=== PATIENT | female | born 1990 | race Caucasian/White ===

== ENCOUNTER 2019-03-13 00:48 | Inpatient (IN) | payer SELFPAY ==
[~2019-03-13] VITALS: Ht 162.6 cm; Wt 131.7 kg
[2019-03-13 01:00] VITALS: BP 153/92
[2019-03-13 03:00] VITALS: BP 157/96
[2019-03-13 04:23] LABS: BASO # 0.1 x10^3/uL (0.0-0.2); BASO % 1 % (0-3); EOS # 0.4 x10^3/uL (0.0-0.7); EOS % 4 % (0-3); HEMATOCRIT 38.6 % (36.0-47.0); HEMOGLOBIN 12.9 g/dL (12.0-15.5); LYMPH # 3.1 x10^3/uL (1.0-4.8); LYMPH % 30 % (24-48); MEAN CORPUSCULAR HEMOGLOBIN 31 pg (25-35); MEAN CORPUSCULAR HGB CONC 34 g/dL (31-37); MEAN CORPUSCULAR VOLUME 91 fL (79-100); MONO # 0.8 x10^3/uL (0.0-1.1); MONO % 8 % (0-9); NEUT # 5.8 x10^3/uL (1.8-7.7); NEUT % 57 % (31-73); PLATELET COUNT 212 x10^3/uL (140-400); RED BLOOD COUNT 4.23 x10^6/uL (3.50-5.40); RED CELL DISTRIBUTION WIDTH 13.2 % (11.5-14.5); WHITE BLOOD COUNT 10.2 x10^3/uL (4.0-11.0)
[2019-03-13 04:38] LABS: ALBUMIN 2.7 g/dL (3.4-5.0); ALBUMIN/GLOBULIN RATIO 0.7 (1.0-1.7); CALCIUM 8.7 mg/dL (8.5-10.1); CREATININE 0.7 mg/dL (0.6-1.0); GFR 101.1; POTASSIUM 3.5 mmol/L (3.5-5.1); TOTAL BILIRUBIN 0.3 mg/dL (0.2-1.0); TOTAL PROTEIN 6.4 g/dL (6.4-8.2)
[2019-03-13 04:58] LABS: CHOLESTEROL/HDL RATIO 4.8
--- NOTE | 2019-03-13 06:58 | HP ---
ADMIT DATE: 03/13/2019 HISTORY OF PRESENT ILLNESS: The patient is a 28-year-old female patient who apparently had had delivered normal baby daughter about 5 days ago. The delivery was normal vaginal and was uneventful. Her delivery was induced. She was preeclamptic, was noted to be hypertensive in the last 10 days of her and she started complaining of shortness of breath. Her ankles were swollen and she has chest pain. She has had her baby delivered at [facility]. She was induced 9 days early because of hypertension, did have protein in the urine, had received balloon dilatation of cervix ruptured membranes; however, she did not receive continued dose of Pitocin. She was in labor for approximately 36 hours. She advised that initially they were planning , but she finally progressed with her delivery. She has no prior cardiac history or DVT or pulmonary embolism. She was basically evaluated in the Emergency Room and her lab work showed that her troponin was high at 0.160. Her D-dimer was high also at 1.49 and has had a chest x-ray, which showed no evidence of confluent infiltrate, no pneumothorax, or pleural effusion. The heart is normal in size. Given that the chest pain and shortness of breath and elevated D-dimer, she underwent a CT angiography of the chest. It showed that no pulmonary emboli identified, mild cardiomegaly. She has a 4 mm right lower lobe nodule, most likely benign and ____ and requires no further followup. She was also found to have a small hiatal hernia and given elevated troponin, a decision was made to transfer her to [facility] to consult the cardiology team. PAST MEDICAL HISTORY: Unremarkable except that she has preeclampsia in the last 10 days of her . She is known to have bronchial asthma during childhood that she has grown up. PAST SURGICAL HISTORY: Unremarkable. ALLERGIES: She has no known drug allergies. MEDICATIONS: She was on 1 tablet once a day and stool softener. OBSTETRIC HISTORY: She is a 1, para 1. FAMILY HISTORY: She has 2 sisters, one older and one younger, both healthy. Both parents are alive and healthy. SOCIAL HISTORY: She is . She does not smoke, drinks alcohol or use recreational drugs. She works in the [employer]. PHYSICAL EXAMINATION: GENERAL: On arrival to the Emergency Room, she was somewhat pale, not jaundiced, cyanosis or thyromegaly. No jugular venous distention. Mild bilateral lower limb edema. VITAL SIGNS: Her heart rate on arrival was 107, blood pressure was 158/81, temperature was 98, respiratory rate was 26, and oxygen saturation was 100% on room air. HEAD, EYES, EARS, NOSE, AND THROAT: Normocephalic, atraumatic. NECK: Supple. HEART: Showed normal first and second heart sounds. No gallop, rub or murmur. CHEST: Clear to auscultation. No crepitation or rhonchi. ABDOMEN: Distended, soft, nontender. No guarding or rigidity. No organomegaly. All hernial orifice intact. Bowel sounds normal. NEUROLOGIC: She was awake, alert, responding appropriately. All her cranial nerves intact. EXTREMITIES: She moves extremities without difficulty. LABORATORY DATA: On arrival showed the white cell count 12,200, hemoglobin 13.4, hematocrit 41, MCV 93, and platelet count 217,000 with normal manual differential. Her prothrombin time was 9.3, INR was 0.9, aPTT was 24 and D-dimer was 1.49. Serum sodium 142, potassium 2.6, chloride 107, bicarbonate 22, anion gap of 13, BUN 15, creatinine 1, estimated GFR was 67 mL per minute. Her glucose was 96, calcium was 9, magnesium was 1.9. Total bilirubin, AST, ALT, alkaline phosphatase were normal. Her first set of troponin was 0.160 and the second one was 0.929. Her beta natriuretic peptide was 784. Total protein was 6.6, albumin was 2.6. Urinalysis showed the urine was yellow, hazy with a pH of 7, specific gravity of 1.015. There was a trace of protein. The urine was negative for glucose, ketones, large amount of blood, negative for nitrite, small amount of leukocyte esterase. There were 6-10 rbc's, 1-4 wbc's, and no bacteria. Her toxic screen was negative. Her EKG showed that she was in sinus tachycardia at 103 beats per minute. There are some QRS abnormalities in anterolateral region, but no finding of acute ST segment elevation myocardial infarction. The patient did have a chest x-ray, which was unremarkable and CT angio of the chest was negative for pulmonary emboli, mild cardiomegaly, small hiatal hernia. ASSESSMENT AND PLAN: The patient was transferred to [facility] to do more troponin and to consult the cardiology team. She probably has a cardiomyopathy. She apparently was given aspirin 324 mg once a day. She is also given a dose of Lovenox 120 mg subcutaneously once, furosemide 40 mg IV once. Also she received a liter of lactated Ringer. The patient was transferred to [facility] and her third troponin was 1.107. Her triglycerides were 103, total cholesterol of 222, LDL was 155, VLDL was 21, HDL was 46, and cholesterol to HDL cholesterol was 12.8. Her TSH was 3.7466. Plan is to obviously await the rollout manager evaluation. TANJA NOLAN MD DR: AMI/bennett JOB#: [id number] / [id number]
[2019-03-13 07:24] VITALS: BP 154/93
--- NOTE | 2019-03-13 10:33 | PDOC2 ---
CARDIAC CONSULT DATE OF CONSULT Date of Consult DATE: 03/13/19 TIME: 10:25 REASON FOR CONSULT Reason for Consult: Elevated troponin Cardiomyopathy REFERRING PHYSICIAN Referring Physician: Dr. Laws SOURCE Source: Chart review, Patient HISTORY OF PRESENT ILLNESS HISTORY OF PRESENT ILLNESS This is a 28 yo female, who delivered a healthy baby girl 03/07/19 at [facility], who presented to [facility] secondary to shortness of breath. Was noted with elevated troponin and [facility] for [facility] evaluation and treatment. Patient reports he was out in the heat yesterday. Stood up and felt dizzy. [place] as if her heart was beating fast and was a little short of breath, so she went to the ED for further evaluation and treatment. No associated diaphoresis, chest pain, or nausea/vomiting. Patient was induced 9 days early due to hypertension. Did not have protein in her urine, but they wanted to induced before she was pre-eclamptic. Had difficulty with dilation. Labor was approximately 36 hrs. Has a history of childhood asthma. Has felt slightly short of breath, wheezy since following delivery. Denies any chest pain. Reports shortness of breath has improved since admission. 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 Resides in [place]. 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 PAST MEDICAL HISTORY Cardiovascular: HTN Pulmonary: Asthma PAST SURGICAL HISTORY Past Surgical History: No pertinent history FAMILY HISTORY Family History: Heart Disease (chf), Hypertension SOCIAL HISTORY Smoke: No ALCOHOL: none Drugs: None Lives: with Family ALLERGIES ALLERGIES: Coded Allergies: No Known Drug Allergies (Unverified , 03/13/19) ROS Review of System 14 point ROS conducted with pertinent positives noted above in HPI. PHYSICAL EXAM General: Alert, Oriented X3, Cooperative, No acute distress HEENT: Atraumatic, Mucous membr. moist/pink Lungs: Clear to auscultation, Normal air movement Heart: Regular rate, Normal S1, Normal S2, No murmurs Abdomen: No tenderness Extremities: No edema, Normal pulses Skin: No breakdown, No significant lesion Neuro: Normal speech, Sensation intact Psych/Mental Status: Mental status NL, Mood NL MUSCULOSKELETAL: No deformity VITALS/I&O VITALS/I&O: Vital Signs Date Time Temp Pulse Resp B/P (MAP) Pulse Ox O2 Delivery O2 Flow Rate FiO2 03/13/19 08:00 Room Air 03/13/19 07:24 98.4 72 20 154/93 (113) 95 98.4 I & O 03/12/19 03/12/19 03/13/19 15:00 23:00 07:00 Intake Total 0 ml Output Total 200 ml Balance -200 ml LABS Lab: Laboratory Tests Test 03/13/19 03:40 White Blood Count 10.2 x10^3/uL (4.0-11.0) Red Blood Count 4.23 x10^6/uL (3.50-5.40) Hemoglobin 12.9 g/dL (12.0-15.5) Hematocrit 38.6 % (36.0-47.0) Mean Corpuscular Volume 91 fL (79-100) Mean Corpuscular Hemoglobin 31 pg (25-35) Mean Corpuscular Hemoglobin Concent 34 g/dL (31-37) Red Cell Distribution Width 13.2 % (11.5-14.5) Platelet Count 212 x10^3/uL (140-400) Neutrophils (%) (Auto) 57 % (31-73) Lymphocytes (%) (Auto) 30 % (24-48) Monocytes (%) (Auto) 8 % (0-9) Eosinophils (%) (Auto) 4 % (0-3) H Basophils (%) (Auto) 1 % (0-3) Neutrophils # (Auto) 5.8 x10^3/uL (1.8-7.7) Lymphocytes # (Auto) 3.1 x10^3/uL (1.0-4.8) Monocytes # (Auto) 0.8 x10^3/uL (0.0-1.1) Eosinophils # (Auto) 0.4 x10^3/uL (0.0-0.7) Basophils # (Auto) 0.1 x10^3/uL (0.0-0.2) Sodium Level 142 mmol/L (136-145) Potassium Level 3.5 mmol/L (3.5-5.1) Chloride Level 104 mmol/L (98-107) Carbon Dioxide Level 25 mmol/L (21-32) Anion Gap 13 (6-14) Blood Urea Nitrogen 13 mg/dL (7-20) Creatinine 0.7 mg/dL (0.6-1.0) Estimated GFR (Cockcroft-Gault) 101.1 BUN/Creatinine Ratio 19 (6-20) Glucose Level 83 mg/dL (70-99) Calcium Level 8.7 mg/dL (8.5-10.1) Total Bilirubin 0.3 mg/dL (0.2-1.0) Aspartate Amino Transferase (AST) 19 U/L (15-37) Alanine Aminotransferase (ALT) 21 U/L (14-59) Alkaline Phosphatase 96 U/L (46-116) Troponin I Quantitative 1.107 ng/mL (0.000-0.055) Total Protein 6.4 g/dL (6.4-8.2) Albumin 2.7 g/dL (3.4-5.0) L Albumin/Globulin Ratio 0.7 (1.0-1.7) L Triglycerides Level 103 mg/dL (0-150) Cholesterol Level 222 mg/dL (0-200) H LDL Cholesterol, Calculated 155 mg/dL (0-100) H VLDL Cholesterol, Calculated 21 mg/dL (0-40) Non-HDL Cholesterol Calculated 176 mg/dL (0-129) H HDL Cholesterol 46 mg/dL (40-60) Cholesterol/HDL Ratio 4.8 Thyroid Stimulating Hormone (TSH) 3.746 uIU/mL (0.358-3.74) H Laboratory Tests 03/13/19 03:40 Laboratory Tests 03/13/19 03:40 ASSESSMENT/PLAN ASSESSMENT/PLAN 1. Dyspnea; CXR without vascular congestion, CTA negative for PE. Resolved 2. NSTEMI; highest 1.1 3. Accelerated hypertension; mildly elevated 4. Post-, 6 days. Not 5. Hyperlipidemia Recommendations Add Norvasc for BP control Echo to assess LV systolic function Trend troponin Supportive care CARLOS SANTIAGO APRN Mar 13, 2019 10:33
[2019-03-13 11:06] VITALS: BP 162/109
[2019-03-13 14:53] VITALS: BP 153/97
--- NOTE | 2019-03-13 14:55 | CARD ---
MR#: [id number] Date of Study: 03/13/2019 Ordering Physician: JOSEFINA GUZMAN, Referring Physician: TANJA NOLAN, Tech: Cookie Moulton APPROVED REPORT EXAM: Two-dimensional and M-mode echocardiogram with Doppler and color Doppler. Other Information Quality : AverageHR: 65bpm Technically limited study due to body habitus. INDICATION Elevated Troponin 2D DIMENSIONS RVDd2.9 (2.9-3.5cm)Left Atrium(2D)3.7 (1.6-4.0cm) IVSd1.0 (0.7-1.1cm)Aortic Root(2D)2.6 (2.0-3.7cm) LVDd4.9 (3.9-5.9cm)LVOT Diameter2.0 (1.8-2.4cm) PWd0.8 (0.7-1.1cm)LVDs2.9 (2.5-4.0cm) FS (%) 41.0 %SV80.8 ml LVEF(%)71.6 (>50%) Aortic Valve AoV Peak Bowen.137.3cm/sAoV VTI30.4cm AO Peak GR.7.5mmHgLVOT VTI 20.35cm AO Mean GR.4mmHg Mitral Valve MV E Nkhplpnp179.6cm/sMV DECEL [id number] MV A Ipiiwtej99.7cm/sE/A Ratio1.3 TDI Lateral E' P. V10.68cm/sMedial E' P. V11.65cm/s E/Lateral E'9.8E/Medial E'9.0 Tricuspid Valve TR P. Xpkvceqr993co/sRAP NOUPOZMX9faTz TR Peak Gr.56czQvEANS09qnIa Pulmonary Vein S1 Cjcmtgwv10.0cm/sS2 Cjpuszvu00.91cm/s D2 Jrqfdkak34.9cm/sPVa toknasex689vmtj LEFT VENTRICLE The left ventricle is normal size. There is borderline concentric left ventricular hypertrophy. The l eft ventricular systolic function is normal. The ejection fraction is estimated at 60%. There is norm al LV segmental wall motion. The left ventricular diastolic function and filling is normal for age. RIGHT VENTRICLE The right ventricle is normal size. There is normal right ventricular wall thickness. The right ventr icular systolic function is normal. ATRIA The left atrium size is normal. The right atrium size is normal. The interatrial septum is intact wit h no evidence for an atrial septal defect or patent foramen ovale as noted on 2-D or Doppler imaging. AORTIC VALVE The aortic valve is normal in structure and function. Doppler and Color Flow revealed no significant aortic regurgitation. There is no significant aortic valvular stenosis. MITRAL VALVE The mitral valve is normal in structure and function. There is no evidence of mitral valve prolapse. There is no mitral valve stenosis. Doppler and Color Flow revealed no mitral valve regurgitation note d. TRICUSPID VALVE The tricuspid valve is normal in structure and function. Doppler and Color Flow revealed trace tricus pid regurgitation with an estimated PAP of 38 mmHg. There is no tricuspid valve prolapse or vegetatio n. There is no tricuspid valve stenosis. PULMONIC VALVE The pulmonary valve is normal in structure and function. Doppler and Color Flow revealed trace pulmon ic valvular regurgitation. GREAT VESSELS The aortic root is normal in size. The IVC is normal in size and collapses >50% with inspiration. PERICARDIAL EFFUSION There is no evidence of significant pericardial effusion. Critical Notification Critical Value: No <Conclusion> The left ventricular systolic function is normal. The ejection fraction is estimated at 60%. There is normal LV segmental wall motion. Trace tricuspid regurgitation with an estimated PAP of 38 mmHg. There is no evidence of significant pericardial effusion. Signed by : Josefina Guzman, Electronically Approved : 03/13/2019 14:54:42
--- NOTE | 2019-03-13 15:07 | PDOC ---
PULMONARY PROGRESS NOTES Vitals Vital Signs Date Time Temp Pulse Resp B/P (MAP) Pulse Ox O2 Delivery O2 Flow Rate FiO2 03/13/19 14:53 98.7 77 20 153/97 (115) 97 Room Air 98.7 Labs Laboratory Tests Test 03/13/19 03:40 03/13/19 10:50 White Blood Count 10.2 x10^3/uL (4.0-11.0) Red Blood Count 4.23 x10^6/uL (3.50-5.40) Hemoglobin 12.9 g/dL (12.0-15.5) Hematocrit 38.6 % (36.0-47.0) Mean Corpuscular Volume 91 fL (79-100) Mean Corpuscular Hemoglobin 31 pg (25-35) Mean Corpuscular Hemoglobin Concent 34 g/dL (31-37) Red Cell Distribution Width 13.2 % (11.5-14.5) Platelet Count 212 x10^3/uL (140-400) Neutrophils (%) (Auto) 57 % (31-73) Lymphocytes (%) (Auto) 30 % (24-48) Monocytes (%) (Auto) 8 % (0-9) Eosinophils (%) (Auto) 4 % (0-3) Basophils (%) (Auto) 1 % (0-3) Neutrophils # (Auto) 5.8 x10^3/uL (1.8-7.7) Lymphocytes # (Auto) 3.1 x10^3/uL (1.0-4.8) Monocytes # (Auto) 0.8 x10^3/uL (0.0-1.1) Eosinophils # (Auto) 0.4 x10^3/uL (0.0-0.7) Basophils # (Auto) 0.1 x10^3/uL (0.0-0.2) Sodium Level 142 mmol/L (136-145) Potassium Level 3.5 mmol/L (3.5-5.1) Chloride Level 104 mmol/L (98-107) Carbon Dioxide Level 25 mmol/L (21-32) Anion Gap 13 (6-14) Blood Urea Nitrogen 13 mg/dL (7-20) Creatinine 0.7 mg/dL (0.6-1.0) Estimated GFR (Cockcroft-Gault) 101.1 BUN/Creatinine Ratio 19 (6-20) Glucose Level 83 mg/dL (70-99) Calcium Level 8.7 mg/dL (8.5-10.1) Total Bilirubin 0.3 mg/dL (0.2-1.0) Aspartate Amino Transf (AST/SGOT) 19 U/L (15-37) Alanine Aminotransferase (ALT/SGPT) 21 U/L (14-59) Alkaline Phosphatase 96 U/L (46-116) Troponin I Quantitative 1.107 ng/mL (0.000-0.055) 0.614 ng/mL (0.000-0.055) Total Protein 6.4 g/dL (6.4-8.2) Albumin 2.7 g/dL (3.4-5.0) Albumin/Globulin Ratio 0.7 (1.0-1.7) Triglycerides Level 103 mg/dL (0-150) Cholesterol Level 222 mg/dL (0-200) LDL Cholesterol, Calculated 155 mg/dL (0-100) VLDL Cholesterol, Calculated 21 mg/dL (0-40) Non-HDL Cholesterol Calculated 176 mg/dL (0-129) HDL Cholesterol 46 mg/dL (40-60) Cholesterol/HDL Ratio 4.8 Thyroid Stimulating Hormone (TSH) 3.746 uIU/mL (0.358-3.74) Laboratory Tests Test 03/13/19 03:40 03/13/19 10:50 White Blood Count 10.2 x10^3/uL (4.0-11.0) Red Blood Count 4.23 x10^6/uL (3.50-5.40) Hemoglobin 12.9 g/dL (12.0-15.5) Hematocrit 38.6 % (36.0-47.0) Mean Corpuscular Volume 91 fL (79-100) Mean Corpuscular Hemoglobin 31 pg (25-35) Mean Corpuscular Hemoglobin Concent 34 g/dL (31-37) Red Cell Distribution Width 13.2 % (11.5-14.5) Platelet Count 212 x10^3/uL (140-400) Neutrophils (%) (Auto) 57 % (31-73) Lymphocytes (%) (Auto) 30 % (24-48) Monocytes (%) (Auto) 8 % (0-9) Eosinophils (%) (Auto) 4 % (0-3) Basophils (%) (Auto) 1 % (0-3) Neutrophils # (Auto) 5.8 x10^3/uL (1.8-7.7) Lymphocytes # (Auto) 3.1 x10^3/uL (1.0-4.8) Monocytes # (Auto) 0.8 x10^3/uL (0.0-1.1) Eosinophils # (Auto) 0.4 x10^3/uL (0.0-0.7) Basophils # (Auto) 0.1 x10^3/uL (0.0-0.2) Sodium Level 142 mmol/L (136-145) Potassium Level 3.5 mmol/L (3.5-5.1) Chloride Level 104 mmol/L (98-107) Carbon Dioxide Level 25 mmol/L (21-32) Anion Gap 13 (6-14) Blood Urea Nitrogen 13 mg/dL (7-20) Creatinine 0.7 mg/dL (0.6-1.0) Estimated GFR (Cockcroft-Gault) 101.1 BUN/Creatinine Ratio 19 (6-20) Glucose Level 83 mg/dL (70-99) Calcium Level 8.7 mg/dL (8.5-10.1) Total Bilirubin 0.3 mg/dL (0.2-1.0) Aspartate Amino Transf (AST/SGOT) 19 U/L (15-37) Alanine Aminotransferase (ALT/SGPT) 21 U/L (14-59) Alkaline Phosphatase 96 U/L (46-116) Troponin I Quantitative 1.107 ng/mL (0.000-0.055) 0.614 ng/mL (0.000-0.055) Total Protein 6.4 g/dL (6.4-8.2) Albumin 2.7 g/dL (3.4-5.0) Albumin/Globulin Ratio 0.7 (1.0-1.7) Triglycerides Level 103 mg/dL (0-150) Cholesterol Level 222 mg/dL (0-200) LDL Cholesterol, Calculated 155 mg/dL (0-100) VLDL Cholesterol, Calculated 21 mg/dL (0-40) Non-HDL Cholesterol Calculated 176 mg/dL (0-129) HDL Cholesterol 46 mg/dL (40-60) Cholesterol/HDL Ratio 4.8 Thyroid Stimulating Hormone (TSH) 3.746 uIU/mL (0.358-3.74) Impression . NOTE DICTATED ASTHMA EXACERBATION NO PE ON CT CHEST WILL CHECK VENOUS DOPPLER MY CLINICAL SUSPICION IS LOW FOR PE RAJESH CAGLE MD Mar 13, 2019 15:07
[2019-03-13] MEDS ORDERED: ALBUTEROL SULFATE 2.5 MG/3 ML NEBU. NEB PRN (15:15)
--- NOTE | 2019-03-13 15:18 | NUR ---
SS following for discharge planning. SS reviewed pt chart. Pt is self pay pt. HCFS following for self pay status. Pt is from home and is currently on room air. No discharge needs noted at this time. SS will continue to follow for discharge planning.
--- NOTE | 2019-03-13 15:57 | RAD ---
Bilateral lower extremity venous duplex study 03/13/2019 3:07 PM Clinical History: Shortness of breath. Bilateral lower extremity edema Comparison: None Technique: Using a combination of real time ultrasound imaging and color-flow and pulse Doppler imaging techniques along with graded compression and augmentation, duplex evaluation of the deep venous system of the both lower extremities was performed. Multiple images were obtained. Findings: There is no sonographic evidence of deep venous thrombosis involving the visualized deep venous structures of either lower extremity. Impression: No evidence of deep venous thrombosis involving either lower extremity Electronically signed by: Shai Durand MD (03/13/2019 3:54 PM) [id number]
[2019-03-13] MEDS ORDERED: amLODIPine BESYLATE 5 MG TABLET PO SCH (16:15)
[2019-03-13] MEDS ORDERED: AMLO5TAB10 PO (16:34)
[2019-03-13] MEDS ORDERED: VENTOLIN HFA18 GM INH (16:36)
[2019-03-13 16:44] VITALS: BP 153/97
--- NOTE | 2019-03-13 17:38 | PDOC ---
Provider Note Provider Note Patient left before being seen. Her time course of her Troponin elevation appears to suggest a more acute event within the last 24 hours. No evidence of P.E or pulmonary issues. ?asthma but per report no wheezing and CXR clr. EKG initially w/o evidence of ischemia. Possible differential includes SCAD versus stress induced CMP. Echo wnl. No arrhythmias on tele. No chest pain/dyspnea today. Overall, low risk. Mild HTN, unlikely to cause troponin elevation. She is traveling, unable to follow up here. will see prn. MITRA WESTBROOK MD Mar 13, 2019 17:38
--- NOTE | 2019-03-13 22:40 | CONS ---
DATE OF CONSULTATION: 03/13/2019 ATTENDING PHYSICIAN: Ana Laws MD REASON FOR CONSULTATION: The patient was seen in pulmonary consultation at the request of Dr. Laws for shortness of air. HISTORY OF PRESENT ILLNESS: The patient is a 28-year-old female with a history of asthma as a child, presented to [facility] secondary to shortness of breath. The patient herself felt that this was related to asthma and felt like her symptoms in the past. She was evaluated at [facility] and then transferred to [facility]. She had a CT angiogram for PE protocol. There was no evidence of central pulmonary emboli. The patient denies any acute onset of shortness of air with pleurisy. She did have some dizziness upon standing and had elevated heart rate. No diaphoresis, chest pain, nausea, vomiting. The patient recently delivered a healthy baby 9 days ago. She was induced as a consequence of hypertension. PAST MEDICAL HISTORY: History of childhood asthma. PAST SURGICAL HISTORY: As above. FAMILY HISTORY: No family history of thrombophilia. SOCIAL HISTORY: She denies any tobacco use. ALLERGIES: No known drug allergies. REVIEW OF SYSTEMS: As indicated above, otherwise, a 10-point system was reviewed and negative. PHYSICAL EXAMINATION: GENERAL: Morbid obese individual in no respiratory distress. VITAL SIGNS: On room air, saturation greater than 92%. HEENT: Eyes, the sclerae were nonicteric. NECK: Jugular venous distention could not be assessed secondary to body habitus. CHEST: Full expansion. LUNGS: Adequate airway flow with no wheezes. CARDIOVASCULAR: Regular rate and rhythm with S1, S2, no S3. ABDOMEN: Soft and obese. EXTREMITIES: No clubbing, cyanosis or edema. Homans sign was negative. LABORATORY DATA: Reviewed. White count was normal. Electrolytes were normal. BUN and creatinine was normal. Troponin was slightly elevated. Albumin was 2.7. Cholesterol was elevated. TSH was elevated. IMPRESSION: 1. Dyspnea, suspect secondary to acute exacerbation of asthma and recent surgery along with some generalized weakness. 2. Non-ST segment elevation myocardial infarction. 3. Hypertension. 4. . The patient delivered approximately 6 days ago. 5. Hyperlipidemia. PLAN: 1. CT angiogram was performed revealing no evidence of central emboli, the radiologist did note that this was not the best of studies as a consequence of the patient's body habitus. My clinical suspicion for PE is low. We will proceed with venous Dopplers of the lower extremities. 2. We will await Cardiology input for the possibility of cardiomyopathy. Echocardiogram was performed earlier today. The results are pending. 3. Treat asthma with nebulized treatments. I do appreciate the privilege in sharing in the patient's care. RAJESH CAGLE MD DR: BRYON/nts JOB#: [id number] / [id number]
== END 2019-03-13 17:28 | disposition home or self-care (01) | DRG 776 ==
LOC: 2 SOUTH 00:48
PROVIDERS: ADMIT Internal Medicine; ATTEND Internal Medicine
DX: O99.89 Other specified diseases and conditions complicating pregnancy, childbirth and the puerperium (principal); I21.4 Non-ST elevation (NSTEMI) myocardial infarction; J45.901 Unspecified asthma with (acute) exacerbation; E78.5 Hyperlipidemia, unspecified; K44.9 Diaphragmatic hernia without obstruction or gangrene; Z79.82 Long term (current) use of aspirin; Z82.49 Family history of ischemic heart disease and other diseases of the circulatory system; Z87.09 Personal history of other diseases of the respiratory system; Z79.899 Other long term (current) drug therapy
CPT/HCPCS: 36415; 80053; 80061; 84443; 84484; 85025; 93306; 93970